=== PATIENT | male | born 1990 | race Caucasian/White ===

== ENCOUNTER → 2017-01-12 | Outpatient (CLI) | payer MEDICARE ==
[~2017-01-12] MED LIST: BACL10TA PO; BACT2OIN TOPICAL; CIPR-9 PO; METH-715 PO; MIRA3350 PO; OXYB5TAB10 PO; PRAZ1CAP PO; VITA100064 PO
--- NOTE | 2017-01-14 12:25 | HM ---
Date Performed: 01/12/2017 Time Performed: 09:00:00 HOOKUP DATE: 01/12/17 09:00:00 AM Wed ANALYSIS START TIME: 01/12/2017 9:05:00 AM ANALYSIS END TIME: 01/13/2017 9:09:00 AM PATIENT AGE: 27 PATIENT HEIGHT PATIENT WEIGHT DRUG LIST PATIENT DIAGNOSIS: PALPITATIONS TEST NARRATIVE: The patient's average heart rate was 67 BPM. No episodes of tachycardia wer e noted. Heart rates less than 50 BPM were noted 4% of the time. No pauses exceeding 2.0 seconds were noted. 2 ventricular ectopics, which represented < 1% of the total beat count, were noted. The highest ventricular ectopic frequency occurred from 06:00 PM to 07:00 PM Wed. During this time 2 VE(s) occurred. Ventricular ectopics were observed as 2 isolated beat(s) only. No couplets or run s were noted. 3531 supraventricular ectopics, which represented 4% of the total beat count, were noted. The highest supraventricular ectopic frequency occurred from 01:00 AM to 02:00 AM AdrienneNorah deras this time 352 SVE(s) occurred. No episodes of ST depression (defined as -1.0 mm or more) were n oted in channel 1. No episodes of ST depression (defined as -1.0 mm or more) were noted in channel 2 . No episodes of ST depression (defined as -1.0 mm or more) were noted in channel 3. TEST INTERPRETATION: 1. The patient was in Sinus rhythm throughout the recording. Average heart rate 67 bpm, minimum heart rate 46 bpm, peak heart rate 103 bpm. 2. There are rare ventricular premature beats, only 2 counted throughout the recording. 3. Th ere are frequent atrial premature beats including one couplet and one ya. There are over 3000 P ACs detected. 4. No runs of SVT or VT. 5. No pauses noted. CONCLUSION: Sinus rhythm with frequent atrial premature beats. Signed b y : Sulaiman Padilla
== END ==
LOC: HCAV 08:40
PROVIDERS: ATTEND Family Medicine
DX: R00.2 Palpitations (principal)
CPT/HCPCS: 93225; 93226